=== PATIENT | female | born 1955 | race Hispanic/Latino ===

== ENCOUNTER 2017-09-01 21:55 | Emergency (ER) | payer MEDICAID ==
[~2017-09-01 21:55] MED LIST: AMLO2.5T PO; ASPI-1197 PO; METO-408 PO; RANI150T7 PO; SIMV10TA6 PO
[2017-09-01] MEDS ORDERED: ACETAMINOPHEN EXTRA STRENGTH 500 MG TABLET ONE (23:09)
== END 2017-09-02 00:19 | disposition home or self-care (01) ==
LOC: EDH 21:55
DX: S63.591A Other specified sprain of right wrist, initial encounter (principal); E11.9 Type 2 diabetes mellitus without complications; E78.5 Hyperlipidemia, unspecified; I10 Essential (primary) hypertension; E07.9 Disorder of thyroid, unspecified; H91.90 Unspecified hearing loss, unspecified ear; W01.0XXA Fall on same level from slipping, tripping and stumbling without subsequent striking against object, initial encounter; Y93.89 Activity, other specified; Y92.89 Other specified places as the place of occurrence of the external cause; Y99.8 Other external cause status
CPT/HCPCS: 73110

== ENCOUNTER 2018-09-29 22:26 | Emergency (ER) | payer MEDICAID, MEDICARE ==
[~2018-09-29 22:26] MED LIST changes: -AMLO2.5T PO; +ASPI-1005 PO; -ASPI-1197 PO; +GUAI5SYR PO; +LEVO25TA54 PO; +LEVO500T2 PO; +LOSA25TA41 PO; +NITR0.4T50 SL; -RANI150T7 PO
[2018-09-29] MEDS ORDERED: SODIUM CHLORIDE 0.9% 1000ML 1,000 ML IV ONE (22:46)
[2018-09-29] MEDS ORDERED: ONDANSETRON HCL 4 MG/2 ML VIAL ONE (22:46)
[2018-09-29 22:54] LABS: BASOPHILS % (AUTO) 0.1 % (0.0-5.0); EOSINOPHILS % (AUTO) 0.2 % (0.0-8.0); LYMPHOCYTES % (AUTO) 5.5 % (21.0-51.0); MEAN CORPUSCULAR HEMOGLOBIN 27.3 pg (27.0-33.0); MEAN CORPUSCULAR HGB CONC 32.9 g/dL (32.0-36.0); MEAN CORPUSCULAR VOLUME 83.2 fL (79-99); MONOCYTES % (AUTO) 3.6 % (3.0-13.0); NEUTROPHILS % (AUTO) 90.6 % (40.0-77.0); PLATELET COUNT (AUTO) 178 K/uL (130-400); RED BLOOD CELL COUNT(AUTO) 4.81 MIL/uL (4.00-5.50); RED CELL DISTRIBUTION WIDTH 15.8 % (11.0-15.5); WHITE BLOOD COUNT (AUTO) 9.5 K/uL (4.8-10.8)
[2018-09-29 23:03] LABS: CREATININE 0.9 mg/dL (0.5-1.5); POTASSIUM 3.6 mmol/L (3.5-5.1)
[2018-09-29 23:08] LABS: ALBUMIN 3.6 g/dL (3.5-5.0); BILIRUBIN,TOTAL 0.5 mg/dL (0.2-1.0); TOTAL PROTEIN, SERUM 7.6 g/dL (6.0-8.3)
[2018-09-29] MEDS ORDERED: KETOROLAC TROMETHAMINE 30MG/ML ONE (23:36)
[2018-09-29 23:39] LABS: INR 0.99 (0.85-1.15); PARTIAL THROMBOPLASTIN TIME 25.4 SEC (26.3-35.5); PROTHROMBIN TIME 10.4 SEC (9.6-11.6)
[2018-09-30 00:14] LABS: APPEARANCE,URINE Clear (CLEAR); BILIRUBIN,URINE Negative (NEGATIVE); COLOR,URINE Dark Yellow (YELLOW); GLUCOSE, URINE (UA) TRACE mg/dL (NEGATIVE); KETONES,URINE 15 mg/dL (NEGATIVE); LEUKOCYTE ESTERASE ,URINE Small (NEGATIVE); NITRATE,URINE Negative (NEGATIVE); OCCULT BLOOD,URINE Small (NEGATIVE); PROTEIN,URINE Trace mg/dL (NEGATIVE)
[2018-09-30 00:28] LABS: BACTERIA,URINE Rare /HPF (None Seen); MUCUS,URINE Many LPF (None Seen); RBC,URINE None Seen /HPF (0-1); SQUAMOUS EPITHELIAL CELL,UR Many /HPF (0-2); WBC,URINE 0-1 /HPF (0-1)
[2018-09-30] MEDS ORDERED: SODIUM CHLORIDE 0.9% 1000ML 1,000 ML IV ONE (00:45)
[2018-09-30] MEDS ORDERED: ACETAMINOPHEN EXTRA STRENGTH 500 MG TABLET ONE (00:45)
[2018-09-30] MEDS ORDERED: LEVOFLOXACIN 500 MG TABLET ONE (01:56)
== END 2018-09-30 02:18 | disposition home or self-care (01) ==
LOC: EDH 22:26
DX: A09 Infectious gastroenteritis and colitis, unspecified (principal); E86.0 Dehydration; E11.9 Type 2 diabetes mellitus without complications; E78.5 Hyperlipidemia, unspecified; I10 Essential (primary) hypertension; E07.9 Disorder of thyroid, unspecified; Z90.710 Acquired absence of both cervix and uterus
CPT/HCPCS: 36415; 71045; 76705; 80053; 81001; 82150; 82550; 83690; 84484; 85025; 85610; 85730; 87804 ×2; 93005; 96361; 96374; 96375; 99285; J1885; J2405; J7030 ×2

== ENCOUNTER → 2021-05-22 | Outpatient (CLI) | payer MEDICARE ==
[~2021-05-22] MED LIST changes: -SIMV10TA6 PO; +SIMV10TA97 PO
== END | disposition home or self-care (01) ==
LOC: RAH 07:24
PROVIDERS: ATTEND Internal Medicine Gastroenterology
DX: K30 Functional dyspepsia (principal)
CPT/HCPCS: 78264; A9541

== ENCOUNTER 2021-08-09 19:37 | Emergency (ER) | payer MEDICARE ==
[~2021-08-09] VITALS: Ht 165.1 cm; Wt 73.9 kg
[2021-08-09] MEDS ORDERED: ONDANSETRON 4MG INJ IVP SCH (20:00)
[2021-08-09 20:13] LABS: BASOPHILS % (AUTO) 0.5 % (0.0-5.0); EOSINOPHILS % (AUTO) 2.4 % (0.0-8.0); HEMATOCRIT 37.9 % (36-48); LYMPHOCYTES % (AUTO) 26.6 % (21.0-51.0); MEAN CORPUSCULAR HEMOGLOBIN 30.4 pg (27.0-33.0); MEAN CORPUSCULAR HGB CONC 34.3 g/dL (32.0-36.0); MEAN CORPUSCULAR VOLUME 88.6 fL (79-99); MONOCYTES % (AUTO) 7.4 % (3.0-13.0); PLATELET COUNT (AUTO) 142 K/uL (130-400); RED BLOOD CELL COUNT(AUTO) 4.28 MIL/uL (4.00-5.50); RED CELL DISTRIBUTION WIDTH 13.9 % (11.0-15.5); WHITE BLOOD COUNT (AUTO) 8.8 K/uL (4.8-10.8)
[2021-08-09 20:22] LABS: CREATININE 0.9 mg/dL (0.5-1.5); POTASSIUM 3.6 mmol/L (3.5-5.1)
[2021-08-09 20:23] LABS: APPEARANCE,URINE Clear (CLEAR); BILIRUBIN,URINE Negative (NEGATIVE); COLOR,URINE Yellow (YELLOW); GLUCOSE, URINE (UA) Negative (NEGATIVE); KETONES,URINE Negative (NEGATIVE); LEUKOCYTE ESTERASE ,URINE Small (NEGATIVE); NITRATE,URINE Negative (NEGATIVE); OCCULT BLOOD,URINE Nonhemolyzed Trace (NEGATIVE); PROTEIN,URINE Trace mg/dL (NEGATIVE)
[2021-08-09 20:29] LABS: BACTERIA,URINE Few /HPF (None Seen); MUCUS,URINE Few LPF (None Seen); SQUAMOUS EPITHELIAL CELL,UR Rare /HPF (0-2)
[2021-08-09 20:29] LABS: ALBUMIN 3.7 g/dL (3.5-5.0); BILIRUBIN,TOTAL 0.3 mg/dL (0.2-1.0); TOTAL PROTEIN, SERUM 7.6 g/dL (6.0-8.3)
[2021-08-09 21:44] VITALS: BP 130/68
[2021-08-09] MEDS ORDERED: CEFTRIAXONE 1G VIAL IVP SCH (22:00)
[2021-08-09] MEDS ORDERED: HYDROCODONE/ACETAMINOPHEN 5/325 MG TAB PO SCH (22:00)
[2021-08-09] MEDS ORDERED: ONDA4TAB10 PO (23:13)
[2021-08-09] MEDS ORDERED: HYOS0.124 SL (23:13)
[2021-08-09] MEDS ORDERED: MACR100 PO (23:13)
== END 2021-08-09 23:47 | disposition home or self-care (01) ==
LOC: EDH 19:37
DX: R10.11 Right upper quadrant pain (principal); K76.0 Fatty (change of) liver, not elsewhere classified; N30.00 Acute cystitis without hematuria; I10 Essential (primary) hypertension; E11.9 Type 2 diabetes mellitus without complications; E03.9 Hypothyroidism, unspecified; Z90.710 Acquired absence of both cervix and uterus
CPT/HCPCS: 36415; 71045; 76705; 80053; 81001; 82550; 83690; 84484; 85025; 87088; 93005; 96374; 96375; 99285; J0696; J2405

== ENCOUNTER 2023-08-03 16:33 | Emergency (ER) | payer MEDICARE ==
[~2023-08-03] VITALS: Ht 165.1 cm; Wt 74.4 kg
[~2023-08-03 16:33] MED LIST changes: +GLIP1TAB4 PO; -GUAI5SYR PO; -LEVO25TA54 PO; -LEVO500T2 PO; +LEVO75CA5 PO; +METO5TAB2 PO; +OMEP40CA21 PO
[2023-08-03 16:51] VITALS: BP 183/86; PULSE 82; RESP 20
[2023-08-03] MEDS ORDERED: IBUP-1493 PO (20:59)
== END 2023-08-03 22:31 | disposition left against medical advice (07) ==
LOC: EDH 16:33
DX: S66.912A Strain of unspecified muscle, fascia and tendon at wrist and hand level, left hand, initial encounter (principal); S20.212A Contusion of left front wall of thorax, initial encounter; E11.9 Type 2 diabetes mellitus without complications; E78.00 Pure hypercholesterolemia, unspecified; I10 Essential (primary) hypertension; K21.9 Gastro-esophageal reflux disease without esophagitis; Z79.82 Long term (current) use of aspirin; Z79.84 Long term (current) use of oral hypoglycemic drugs; Z79.899 Other long term (current) drug therapy; Z88.8 Allergy status to other drugs, medicaments and biological substances; Z91.041 Radiographic dye allergy status; W18.39XA Other fall on same level, initial encounter; Y93.89 Activity, other specified; Y92.89 Other specified places as the place of occurrence of the external cause; Y99.8 Other external cause status
CPT/HCPCS: 71101; 73100; 73130

== ENCOUNTER → 2023-11-04 | Outpatient (CLI) | payer MEDICARE ==
[~2023-11-04] MED LIST changes: +IBUP-1493 PO
[2023-11-04 10:13] LABS: CREATININE 0.8 mg/dL (0.5-1.0)
== END | disposition home or self-care (01) ==
LOC: LAB 09:12
PROVIDERS: ATTEND Internal Medicine Gastroenterology
DX: K76.9 Liver disease, unspecified (principal)
CPT/HCPCS: 36415; 82565; 84520

== ENCOUNTER → 2023-12-06 | Outpatient (CLI) | payer MEDICARE, MEDICAID ==
[~2023-12-06] MED LIST changes: +IOHEXOL 350 MG/ML 100ML INFUS..BTL IV ONE
== END | disposition home or self-care (01) ==
LOC: RAH 08:13
PROVIDERS: ATTEND Internal Medicine Gastroenterology
DX: R16.1 Splenomegaly, not elsewhere classified (principal); K76.89 Other specified diseases of liver
CPT/HCPCS: 74170; Q9967

== ENCOUNTER → 2024-12-04 | Outpatient (CLI) | payer MEDICARE, MEDICAID ==
[~2024-12-04] MED LIST changes: -IOHEXOL 350 MG/ML 100ML INFUS..BTL IV ONE; -LEVO75CA5 PO; +LEVO75CA6 PO
--- NOTE | 2024-12-05 07:33 | HMCIMG ---
EXAMINATION: ULTRASOUND OF THE ABDOMEN WITH DUPLEX SCAN. CLINICAL HISTORY: Liver disease. COMPARISON: CT abdomen with contrast dated 12/06/2023. TECHNIQUE: Real-time grayscale ultrasound images of the abdomen. In addition, color Doppler is medically necessary to perform in order to evaluate vascularity and blood flow. FINDINGS: Liver: Bulky in caliber, the right hepatic lobe measures 18.0 cm in the craniocaudal dimension. There is increased echogenicity of the hepatic parenchyma. There is no focal hepatic abnormality or intrahepatic biliary ductal dilatation. The main portal vein is normal and measures 1.1 cm. Appropriate hepatopetal flow within the hepatic arteries and portal veins, and hepatofugal flow within the hepatic veins. Doppler indices are as follow: Main portal vein: 14 cm/s Right hepatic vein: 9 cm/s Mid hepatic vein: 27 cm/s Left hepatic vein: 18 cm/s Splenic vein: 15 cm/s at hilum. Hepatic artery: 56 cm/s and RI 0.67 Gallbladder: Within normal limits with normal wall thickness (0.2 cm). No hyperemia or pericholecystic free fluid. There is no cholelithiasis. Common bile duct is normal in caliber, measuring 0.5 cm. Spleen is bulky in caliber and measures 13.7 x 4.8 x 4.5 cm in craniocaudal, AP and transverse dimensions respectively. No focal lesions. Pancreas: Normal in caliber and echotexture. No calcification or dilated pancreatic duct. The kidneys are normal in caliber, the right kidney measures 9.7 x 4.5 x 3.8 cm and the left kidney measures 10.3 x 4.5 x 3.8 cm in its craniocaudal, AP and transverse dimensions respectively. There is normal renal cortical thickness and cortical echogenicity. There is no renal calculus or hydronephrosis bilaterally. The mid and distal aspects of abdominal aorta are normal in caliber measuring 1.9 cm and 1.6 cm in the AP dimension respectively. The proximal aorta is obscured by overlying bowel gas. Visualized aspects of the inferior vena cava are unremarkable. IMPRESSION: Hepatomegaly with hepatic steatosis. Mild splenomegaly. Slow flow in the main portal and right hepatic veins. /Converse
== END | disposition home or self-care (01) ==
LOC: RAH 07:22
PROVIDERS: ATTEND Internal Medicine Gastroenterology
DX: K76.0 Fatty (change of) liver, not elsewhere classified (principal); R16.2 Hepatomegaly with splenomegaly, not elsewhere classified; R14.3 Flatulence; R10.9 Unspecified abdominal pain; K76.9 Liver disease, unspecified
CPT/HCPCS: 76700; 93975